=== PATIENT | female | born 1975 | race African-American/Black ===

== ENCOUNTER 2022-08-15 17:03 | Emergency (ER) | payer MEDICAID, OTHER ==
[~2022-08-15] VITALS: Ht 165.1 cm; Wt 87.3 kg
[2022-08-15 17:11] VITALS: BP 119/75
[2022-08-15] MEDS ORDERED: ONDANSETRON ODT 4 MG TAB PO ONE (20:00)
[2022-08-15] MEDS ORDERED: HYDROcodone-ACET 5/325MG TAB PO ONE (20:00)
== END 2022-08-15 20:16 | disposition home or self-care (01) ==
LOC: ER 17:03
DX: R07.81 Pleurodynia (principal); M25.562 Pain in left knee; E78.5 Hyperlipidemia, unspecified; I10 Essential (primary) hypertension; I25.2 Old myocardial infarction; Z88.0 Allergy status to penicillin
CPT/HCPCS: 71046; 99283; Q0162

== ENCOUNTER 2022-09-26 18:36 | Emergency (ER) | payer MEDICAID, OTHER ==
[~2022-09-26] VITALS: Ht 165.1 cm; Wt 81.8 kg
[2022-09-27] MEDS ORDERED: HYDR-4902 PO (03:48)
[2022-09-27 04:18] VITALS: BP 103/64
== END 2022-09-27 04:56 | disposition home or self-care (01) ==
LOC: ER 18:36
DX: S82.145A Nondisplaced bicondylar fracture of left tibia, initial encounter for closed fracture (principal); I10 Essential (primary) hypertension; I25.2 Old myocardial infarction; F17.210 Nicotine dependence, cigarettes, uncomplicated; Z79.899 Other long term (current) drug therapy; Z88.0 Allergy status to penicillin; V43.52XA Car driver injured in collision with other type car in traffic accident, initial encounter; Y93.89 Activity, other specified; Y92.410 Unspecified street and highway as the place of occurrence of the external cause; Y99.8 Other external cause status
CPT/HCPCS: 29515; 73590